=== PATIENT | male | born 1985 | race Caucasian/White ===

== ENCOUNTER → 2019-05-08 | Outpatient (CLI) | payer OTHER ==
[~2019-05-08] MED LIST: HYOSCYAMINE PO; LACT1CAP37 PO; METF500T17 PO; pantoprazole PO
[2019-05-08 16:33] LABS: CHLORIDE 103 mmol/L (98-107)
[2019-05-08 16:53] LABS: ALANINE AMINOTRANSFERASE 48 U/L (12-78); ALBUMIN 3.9 g/dL (3.4-5.0); ALKALINE PHOSPHATASE 70 U/L (45-117); ANION GAP 9 mmol/L (5-15); BILIRUBIN,TOTAL 0.6 mg/dL (0.2-1.0); CALCIUM 8.8 mg/dL (8.5-10.1); CREATININE 0.91 mg/dL (0.7-1.3); TOTAL PROTEIN 7.9 g/dL (6.4-8.2)
== END | disposition home or self-care (01) ==
LOC: STAR 15:28 → MERGE 16:00
PROVIDERS: ATTEND Internal Medicine Geriatric Medicine
DX: Z01.818 Encounter for other preprocedural examination (principal); K50.00 Crohn's disease of small intestine without complications
CPT/HCPCS: 36415; 80053; 93005

== ENCOUNTER 2019-05-15 07:24 | Day surgery (SDC) | payer OTHER ==
[~2019-05-15] VITALS: Ht 188 cm; Wt 142.6 kg
[2019-05-15] MEDS ORDERED: LACTATED RINGERS 1,000 ML IV SCH (07:40)
[2019-05-15 07:41] VITALS: BP 152/101
[2019-05-15] MEDS ORDERED: LIDOCAINE-MPF 1%, 2ML INFIL ONE (08:00)
[2019-05-15] MEDS ORDERED: PANT40TA5 PO (08:08)
[2019-05-15] MEDS ORDERED: ATOR20TA37 PO (08:08)
[2019-05-15] MEDS ORDERED: HYOS0.1268 PO (08:08)
[2019-05-15] MEDS ORDERED: GLYCOPYRROLATE 0.2MG/1ML, 5ML ONE (08:35)
[2019-05-15] MEDS ORDERED: PROPOFOL 10 MG/ML, 20ML ONE (08:35)
[2019-05-15] MEDS ORDERED: ROCURONIUM 10MG/ML,5ML ONE (08:35)
[2019-05-15] MEDS ORDERED: NEOSTIGMINE 1 MG/ML, 10ML ONE (08:35)
== END 2019-05-15 11:30 | disposition home or self-care (01) ==
LOC: OUT 07:24
PROVIDERS: ATTEND Internal Medicine Geriatric Medicine
DX: K63.3 Ulcer of intestine (principal); K52.9 Noninfective gastroenteritis and colitis, unspecified; E78.5 Hyperlipidemia, unspecified; G47.33 Obstructive sleep apnea (adult) (pediatric); E11.9 Type 2 diabetes mellitus without complications; K21.9 Gastro-esophageal reflux disease without esophagitis; E66.01 Morbid (severe) obesity due to excess calories; Z68.41 Body mass index [BMI] 40.0-44.9, adult; Z79.84 Long term (current) use of oral hypoglycemic drugs; Z79.899 Other long term (current) drug therapy; Z82.49 Family history of ischemic heart disease and other diseases of the circulatory system; Z83.3 Family history of diabetes mellitus; Z98.890 Other specified postprocedural states
CPT/HCPCS: 44799; 82962; 88305; J2704; J2710